=== PATIENT | female | born 1990 | race Caucasian/White ===

== ENCOUNTER 2016-03-26 18:28 | Emergency (ER) | payer OTHER ==
[2016-03-26 21:06] VITALS: BP 146/80
--- NOTE | 2016-03-26 21:14 | UC ---
[facility] HPI - HPI Summary HPI Summary: complaint of pain in upper left jaw infected wisdom tooth seen by dentist 3 days ago and he didn't put her on antibiotic had her teeth cleaned and then the pain started to get worse throbbing aching pain has appt at the end of march for tooth removal denies fever taking ibuprofen for pain with some relief - History of Current Complaint Chief Complaint: UCDentalProblem Stated Complaint: DENTAL Time Seen by Provider: 03/26/16 21:08 Hx Obtained From: Patient Hx Last Menstrual Period: 03/02/16 - Allergies/Home Medications Allergies/Adverse Reactions: Allergies Allergy/AdvReac Type Severity Reaction Status Date / Time Montelukast [From Singulair] Allergy See Comment Verified 03/26/16 21:06 Penicillins Allergy Rash Verified 03/26/16 21:06 seasonal allergy Allergy Eyes Uncoded 03/26/16 21:06 Itchy/Swollen/Red/Watery Home Medications: Home Medications Norethindr/Eth Estradiol(Nf) [Lo Loestrin Fe (NF)] 1 tab PO QPM 03/26/16 [ History Confirmed 03/26/16] PMH/Surg Hx/FS Hx/Imm Hx Previously Healthy: Yes Cardiovascular History Of: Reports: Cardiac Disorders - heart palpitations Respiratory History Of: Reports: Asthma - Surgical History Surgical History: Yes Surgery Procedure, Year, and Place: L 'knee arthroscopy 2007. Oral 2008. C- sect 2011, 2013 - Family History Known Family History: Positive: None, Hypertension, Respiratory Disease - Social History Occupation: Employed Full-time Lives: With Family Alcohol Use: Occasionally Alcohol Amount: WHEN NOT Substance Use Type: None Smoking Status (MU): Never Smoked Tobacco Review of Systems Constitutional: Negative Skin: Negative Eyes: Negative ENT: Dental Pain Respiratory: Negative Cardiovascular: Negative Gastrointestinal: Negative Genitourinary: Negative Motor: Negative Neurovascular: Negative Musculoskeletal: Negative Neurological: Negative Psychological: Negative All Other Systems Reviewed And Are Negative: Yes Physical Exam Triage Information Reviewed: Yes Appearance: No Pain Distress, Well-Nourished Vital Signs: Initial Vital Signs Temp 97.9 F 03/26/16 21:01 Pulse 77 03/26/16 21:01 Resp 20 03/26/16 21:01 BP 146/80 03/26/16 21:01 Vital Signs Reviewed: Yes Eyes: Positive: Conjunctiva Clear ENT: Positive: Pharynx normal, TMs normal Dental: Positive: Gross Decay/Caries @ - 16 Neck: Positive: No Lymphadenopathy Respiratory: Positive: Lungs clear, Normal breath sounds, No respiratory distress Cardiovascular: Positive: RRR, No Murmur, Pulses Normal Musculoskeletal: Positive: No Edema Neurological Exam: Normal Psychological Exam: Normal Skin Exam: Normal Dental Complaint Course/Dx - Differential Dx/Diagnosis Differential Diagnosis/Dx: Dental Caries, Fractured Tooth Provider Diagnoses: dental infection Discharge - Discharge Plan Condition: Stable Disposition: HOME Prescriptions: Clindamycin Cap(NF) [Cleocin 300 mg Cap(NF)] 300 mg PO TID #30 cap Patient Education Materials: Dental Caries (ED) Referrals: DAVID Saucedo [Primary Care Provider] - Additional Instructions: Start antibiotic as directed Increase fluids and rest Take acetaminophen or ibuprofen for fever or pain please call your orthodondist for further treatment Please review your discharge instructions. If your symptoms do not improve please call your primary care provider or return to urgent care
== END 2016-03-26 21:23 | disposition home or self-care (01) ==
LOC: UCCORT 18:28
DX: K04.7 Periapical abscess without sinus (principal); R00.2 Palpitations; J45.909 Unspecified asthma, uncomplicated; Z88.8 Allergy status to other drugs, medicaments and biological substances; Z88.0 Allergy status to penicillin
CPT/HCPCS: 99212; G0463

== ENCOUNTER 2017-02-12 08:51 | Emergency (ER) | payer OTHER ==
[2017-02-12 09:00] VITALS: BP 128/62
--- NOTE | 2017-02-12 09:21 | ED ---
Throat Pain/Nasal Congestion - HPI Summary HPI Summary: 26 yr old female with the complaint of sore throat. Onset of symptoms yesterday and limited to pain in throat, 5/10. No other symptoms. no runny nose , no cough. no post nasal drip. Denies fever, nausea. - History of Current Complaint Chief Complaint: UCRespiratory Time Seen by Provider: 02/12/17 09:04 - Allergies/Home Medications Allergies/Adverse Reactions: Allergies Allergy/AdvReac Type Severity Reaction Status Date / Time Hydrocodone Allergy Rash Verified 02/12/17 09:00 Montelukast [From Singulair] Allergy See Comment Verified 03/26/16 21:06 Penicillins Allergy Rash Verified 03/26/16 21:06 seasonal allergy Allergy Eyes Uncoded 03/26/16 21:06 Itchy/Swollen/Red/Watery Home Medications: Home Medications Mv & Min W/ Methylfol [ + Complete Multi 0.267 & 373 mg] 1 fariha PO DAILY 02/12/17 [History Confirmed 02/12/17] PMH/Surg Hx/FS Hx/Imm Hx Respiratory History: Reports: Hx Asthma - Surgical History Surgery Procedure, Year, and Place: L 'knee arthroscopy 2007. Oral 2008. C- sect 2011, 2013 Infectious Disease History: No Infectious Disease History: Denies: Traveled Outside the [place] in Last 30 Days - Family History Known Family History: Positive: None, Hypertension, Respiratory Disease - Social History Alcohol Use: None Alcohol Amount: WHEN NOT Substance Use Type: Reports: None Smoking Status (MU): Never Smoked Tobacco Review of Systems Constitutional: Negative Positive: Sore Throat All Other Systems Reviewed And Are Negative: Yes Physical Exam Triage Information Reviewed: Yes Vital Signs On Initial Exam: Initial Vitals Temp Pulse Resp BP Pulse Ox 98.4 F 92 18 128/62 98 02/12/17 08:56 02/12/17 08:56 02/12/17 08:56 02/12/17 08:56 02/12/17 08:56 Vital Signs Reviewed: Yes Appearance: Positive: Well-Appearing, No Pain Distress Skin: Positive: Warm, Skin Color Reflects Adequate Perfusion Head/Face: Positive: Normal Head/Face Inspection Eyes: Positive: EOMI ENT: Positive: Pharyngeal erythema, TMs normal. Negative: Nasal congestion Neck: Positive: Supple, Nontender Respiratory/Lung Sounds: Positive: Clear to Auscultation, Breath Sounds Present Cardiovascular: Positive: RRR. Negative: Murmur Abdomen Description: Positive: Nontender Musculoskeletal: Positive: Strength/ROM Intact Neurological: Positive: Sensory/Motor Intact, Alert, Oriented to Person Place, Time, CN Intact II-III Psychiatric: Positive: Normal - Alicia Coma Scale Best Eye Response: 4 - Spontaneous Best Motor Response: 6 - Obeys Commands Best Verbal Response: 5 - Oriented Diagnostics - Vital Signs Vital Signs Temp Pulse Resp BP Pulse Ox 02/12/17 08:56 98.4 F 92 18 128/62 98 - Laboratory Lab Results: Lab Results 02/12/17 Range/Units 08:57 Group A Strep Rapid Positive H (Negative) Lab Statement: Any lab studies that have been ordered have been reviewed, and results considered in the medical decision making process. EENT Course/Dx - Course Course Of Treatment: 26 yr old with sore throat. DC home on zithromax. - Diagnoses Provider Diagnoses: Strep throat Discharge - Discharge Plan Condition: Good Disposition: HOME Prescriptions: Azithromycin TAB* [Zithromax TAB (Z-FARIHA) 250 mg #6 tabs] 2 tab PO .TODAY, THEN 1 DAILY #1 fariha Patient Education Materials: Strep Throat (ED) Forms: *Work Release Referrals: DAVID Saucedo [Primary Care Provider] -
== END 2017-02-12 09:26 | disposition home or self-care (01) ==
LOC: UCCORT 08:51
DX: J02.0 Streptococcal pharyngitis (principal); J45.909 Unspecified asthma, uncomplicated; Z88.0 Allergy status to penicillin; Z88.5 Allergy status to narcotic agent
CPT/HCPCS: 87651; 99212; G0463

== ENCOUNTER 2017-07-09 08:43 | Emergency (ER) | payer OTHER ==
[2017-07-09 09:15] VITALS: BP 123/65
--- NOTE | 2017-07-09 09:30 | UC ---
Neck Pain HPI - HPI Summary HPI Summary: Pt presents with progressive tightness and spasm left side of neck and left upper shoulder. Pt states woke this way yesterday. Sx progressed during the day and much worse this am. Pt has had had similar sx in past - has gone to chiropracter. Last time > 1 year. Pt states similar location, but "more intense " Pt denies trauma or other injury. No alejandra, vision changes. No extremity weakness or paresthesia. PT took Motrin yesterday, none today. Pt RHD Pt's medications reviewed this visit - History of Current Complaint Chief Complaint: UCBackPain Stated Complaint: NECK PAIN Time Seen by Provider: 07/09/17 09:08 Hx Obtained From: Patient Hx Last Menstrual Period: 06/24/17 Onset/Duration Of Injury/Symptoms: Days - 1 Mechanism Of Injury: No Known Trauma Timing: Constant Onset/Duration: Gradual Onset, Lasting Days - 1 Severity: Moderate Pain Intensity: 5 Pain Scale Used: 0-10 Numeric Location: Discrete At: - left posterior shoulder, upper back Aggravating Factors: Movement Alleviating Factors: Position Associated Signs & Symptoms: Negative: Weakness, Paresthesia - Allergies/Home Medications Allergies/Adverse Reactions: Allergies Allergy/AdvReac Type Severity Reaction Status Date / Time hydrocodone Allergy Rash Verified 07/09/17 09:09 montelukast [From Singulair] Allergy See Comment Verified 07/09/17 09:09 Penicillins Allergy Rash Verified 07/09/17 09:09 seasonal allergy Allergy Eyes Uncoded 03/26/16 21:06 Itchy/Swollen/Red/Watery Home Medications: Home Medications Ibuprofen TAB* [Advil TAB*] 600 mg PO Q6H PRN 07/09/17 [History Confirmed ] PMH/Surg Hx/FS Hx/Imm Hx Previously Healthy: Yes - Surgical History Surgical History: Yes Surgery Procedure, Year, and Place: L 'knee arthroscopy 2007. Oral 2008. C- sect 2011, 2013 - Family History Known Family History: Positive: None, Hypertension, Respiratory Disease - Social History Occupation: Employed Full-time Lives: With Family Alcohol Use: None Alcohol Amount: WHEN NOT Substance Use Type: None Smoking Status (MU): Never Smoked Tobacco Review Of Systems Constitutional: Positive: Negative Musculoskeletal: Positive: Other: - left upper back pain Neurological: Positive: Negative Psychological: Positive: Negative All Other Systems Reviewed And Are Negative: Yes Physical Exam Triage Information Reviewed: Yes Appearance: Well-Appearing, Well-Nourished, Other: - pt with discomfort - holding head stiff with movement second to left sided neck pain Vital Signs: Initial Vital Signs Temp 98.1 F 07/09/17 09:10 Pulse 70 07/09/17 09:10 Resp 18 07/09/17 09:10 BP 123/65 07/09/17 09:10 Pulse Ox 100 07/09/17 09:10 Vital Signs Reviewed: Yes Eye Exam: Normal Eyes: Positive: Conjunctiva Clear ENT Exam: Normal ENT: Positive: Normal ENT inspection, Hearing grossly normal, Pharynx normal Dental Exam: Normal Neck exam: Normal Neck: Positive: Supple, Nontender, No Lymphadenopathy Respiratory Exam: Normal Respiratory: Positive: Chest non-tender, Lungs clear, Normal breath sounds, No respiratory distress, No accessory muscle use Cardiovascular Exam: Normal Cardiovascular: Positive: RRR, No Murmur, Pulses Normal Abdominal Exam: Normal Abdomen Description: Positive: Nontender, No Organomegaly, Soft Bowel Sounds: Positive: Present Musculoskeletal: Positive: Other: - no pain spinous process c/t/l/s + TTP left trapezius + palpable muscle spasm + ROM with discomfort c spine + abduction left shoulder with left trap pain + flex/ext elbow + pronate/supinate elbow + flex/ext wrist Neurological Exam: Normal Neurological: Positive: Alert, Other: - + thumb up, A ok, finger cross, finger spread + gross sensation Psychological Exam: Normal Psychological: Positive: Normal Response To Family Skin Exam: Normal Neck Pain Course/Dx - Course Course Of Treatment: Pt with left sided trapezius pain. palpable spasm. no midline pain. recommend motrin/apap. flexeril. heat. stretch. neck collar. return precautions discussed. pt comfortable and in agreement with plan - Differential Dx/Diagnosis Provider Diagnoses: muscle spasm Discharge - Sign-Out/Discharge Documenting (check all that apply): Discharge/Admit/Transfer - Discharge Plan Condition: Stable Disposition: HOME Prescriptions: Cyclobenzaprine TAB* [Flexeril 10 MG TAB*] 5 - 10 mg PO Q12HR PRN #10 tab MDD 2 PRN Reason: muscle spasm Patient Education Materials: Cervical Strain (ED), Muscle Spasm (ED) Referrals: DAVID Saucedo [Primary Care Provider] - Additional Instructions: - Okay to alternate ibuprofen (Advil, Motrin) 600mg and Tylenol product every 3hours as needed for pain. Take with food. Do NOT take for more than 4-5 days. -Take Flexeril - muscle relaxer as prescribed. This may cause sleepiness. Do NOT drive, operate machinery or drink alcohol while taking muscle relaxant. -Apply moist heat to your back for 20 minutes at a time, 4-5 times a day. Once your muscles are warm, slow gentle stretching exercises are important - Wear neck collar for support -Contact your doctor today to arrange a follow-up appointment next week. If you do not have a doctor you have been given the contact information for the physician referral center - call for an appointment. -If you pain is uncontrolled or you develop arm weakness or any other concerns it is recommended you go to an emergency department for further treatment - Billing Disposition and Condition Condition: STABLE Disposition: HOME
[2017-07-09] MEDS ORDERED: Cyclobenzaprine TAB* 10 MG PO ONE ×2 (09:49→09:50)
[2017-07-09] MEDS ORDERED: Ibuprofen TAB* 600 MG PO ONE (09:49)
== END 2017-07-09 10:08 | disposition home or self-care (01) ==
LOC: UCCORT 08:43
DX: M62.838 Other muscle spasm (principal); Z88.0 Allergy status to penicillin; Z88.5 Allergy status to narcotic agent; Z88.8 Allergy status to other drugs, medicaments and biological substances
CPT/HCPCS: 99213; A9270-GY; G0463

== ENCOUNTER 2019-01-21 10:04 | Emergency (ER) | payer OTHER ==
[2019-01-21 10:24] VITALS: BP 124/72
--- NOTE | 2019-01-21 10:52 | UC ---
Throat Pain/Nasal Christiano HPI - HPI Summary HPI Summary: 28-year-old female with sore throat and fever for the past 24 hours. Her daughter has documented strep pharyngitis. - History of Current Complaint Chief Complaint: UCGeneralIllness Stated Complaint: THROAT COMPLAINT Time Seen by Provider: 01/21/19 10:40 Hx Obtained From: Patient Hx Last Menstrual Period: 12/23/18 ?: No Onset/Duration: Gradual Onset Severity: Mild Pain Intensity: 5 Cough: None Associated Signs & Symptoms: Positive: Fever - Allergies/Home Medications Allergies/Adverse Reactions: Allergies Allergy/AdvReac Type Severity Reaction Status Date / Time hydrocodone Allergy Rash Verified 01/21/19 10:20 montelukast [From Singulair] Allergy See Comment Verified 01/21/19 10:20 Penicillins Allergy Rash Verified 01/21/19 10:20 seasonal allergy Allergy Eyes Uncoded 01/21/19 10:20 Itchy/Swollen/Red/Watery Home Medications: Home Medications Multivitamins/Minerals TAB* [Thera M Plus TAB*] 1 tab PO DAILY 01/21/19 [ History Confirmed 01/21/19] PMH/Surg Hx/FS Hx/Imm Hx Previously Healthy: Yes - Surgical History Surgical History: Yes Surgery Procedure, Year, and Place: L 'knee arthroscopy 2007. Oral 2008. C- sect 2013 - Family History Known Family History: Positive: None, Hypertension, Respiratory Disease - Social History Alcohol Use: Occasionally Alcohol Amount: WHEN NOT Substance Use Type: None Smoking Status (MU): Never Smoked Tobacco Review of Systems All Other Systems Reviewed And Are Negative: Yes Constitutional: Positive: Fever ENT: Positive: Sore Throat Is Patient Immunocompromised?: No Physical Exam Triage Information Reviewed: Yes Appearance: Well-Appearing, No Pain Distress, Well-Nourished Vital Signs: Initial Vital Signs Temp 98.5 F 01/21/19 10:21 Pulse 97 01/21/19 10:21 Resp 15 01/21/19 10:21 BP 124/72 01/21/19 10:21 Pulse Ox 100 01/21/19 10:21 Vital Signs Reviewed: Yes Eyes: Positive: Conjunctiva Clear ENT: Positive: Pharyngeal erythema, TMs normal, Tonsillar swelling, Tonsillar exudate - Patient has "strep smell" to breath., Uvula midline Neck: Positive: Supple, Nontender, Enlarged Nodes @ - Very mild bilateral tonsillar lymph node enlargement. Respiratory: Positive: Lungs clear, Normal breath sounds, No respiratory distress, No accessory muscle use Cardiovascular: Positive: RRR, No Murmur, Pulses Normal, Brisk Capillary Refill Abdomen Description: Positive: Nontender, No Organomegaly, Soft. Negative: CVA Tenderness (R), CVA Tenderness (L), Distended, Guarding, Splenomegaly Bowel Sounds: Positive: Present Musculoskeletal Exam: Normal Neurological Exam: Normal Psychological Exam: Normal Skin Exam: Normal Throat Pain/Nasal Course/Dx - Course Course Of Treatment: Because of the history of her daughter having strep throat and the patient has clinical strep I'm going to treat her with a Z-Fariha. She is comfortable here and to follow-up with her primary care provider if no improvement in 3 or 4 days. - Differential Dx/Diagnosis Provider Diagnosis: Tonsillitis Discharge ED - Sign-Out/Discharge Documenting (check all that apply): Patient Departure All imaging exams completed and their final reports reviewed: No Studies - Discharge Plan Condition: Fair Disposition: HOME Prescriptions: Azithromyxin FARIHA (NF) [Z-Fariha (Zithromax) 250 mg tabs #6] 2 tab PO .TODAY, THEN 1 DAILY #6 tab Patient Education Materials: Tonsillitis (ED) Referrals: No Primary Care Phys,NOPCP [Primary Care Provider] - [facility] [Outside] Additional Instructions: Increase fluids, change your toothbrush in 24 hours, Tylenol every 4 hours and may alternate with Motrin every 8 hours for pain or fever. Follow-up with your primary care provider if no improvement in 3 or 4 days. - Billing Disposition and Condition Condition: FAIR Disposition: Home
== END 2019-01-21 11:04 | disposition home or self-care (01) ==
LOC: UCCORT 10:04
DX: J03.90 Acute tonsillitis, unspecified (principal); Z88.5 Allergy status to narcotic agent; Z88.0 Allergy status to penicillin; Z91.09 Other allergy status, other than to drugs and biological substances; Z88.8 Allergy status to other drugs, medicaments and biological substances
CPT/HCPCS: 87651; 99212; G0463

== ENCOUNTER 2019-03-24 15:48 | Emergency (ER) | payer OTHER ==
[2019-03-24 16:47] VITALS: BP 128/65
--- NOTE | 2019-03-24 17:09 | UC ---
Respiratory Complaint HPI - HPI Summary HPI Summary: Cough and congestion started 4 days ago. Has pain in chest when she coughs, stinging.. Pt feels she may have bronchitis. Took chris seltzer type cold med this morning and has been using her inhaler. using albuterol but not helping. - History of Current Complaint Chief Complaint: UCGeneralIllness Stated Complaint: COUGH,CONGESTION Time Seen by Provider: 03/24/19 16:53 Hx Obtained From: Patient Hx Last Menstrual Period: 12/23/18 Pain Intensity: 3 Pain Scale Used: 0-10 Numeric Character: Cough: Nonproductive Aggravating Factors: Nothing Alleviating Factors: Nothing - Allergies/Home Medications Allergies/Adverse Reactions: Allergies Allergy/AdvReac Type Severity Reaction Status Date / Time hydrocodone Allergy Rash Verified 03/24/19 16:47 montelukast [From Singulair] Allergy See Comment Verified 03/24/19 16:47 Penicillins Allergy Rash Verified 03/24/19 16:47 seasonal allergy Allergy Eyes Uncoded 03/24/19 16:47 Itchy/Swollen/Red/Watery Home Medications: Home Medications Albuterol HFA INHALER* [Ventolin HFA Inhaler*] 1 - 2 puff INH Q4H PRN 03/24/19 [ History Confirmed 03/24/19] PMH/Surg Hx/FS Hx/Imm Hx Previously Healthy: Yes Respiratory History: Asthma - Surgical History Surgical History: Yes Surgery Procedure, Year, and Place: L 'knee arthroscopy 2007. Oral 2008. C- sect 2011, 2013 - Family History Known Family History: Positive: None, Hypertension, Respiratory Disease - Social History Alcohol Use: Occasionally Alcohol Amount: WHEN NOT Substance Use Type: None Smoking Status (MU): Never Smoked Tobacco Review of Systems All Other Systems Reviewed And Are Negative: Yes Constitutional: Negative: Fever ENT: Positive: Sinus Congestion. Negative: Sore Throat, Ear Ache Respiratory: Positive: Cough. Negative: Shortness Of Breath, Other - denies wheezing Gastrointestinal: Negative: Vomiting, Nausea Neurological: Negative: Headache Physical Exam Triage Information Reviewed: Yes Appearance: Well-Appearing Vital Signs: Initial Vital Signs Temp 98.6 F 03/24/19 16:42 Pulse 74 03/24/19 16:42 Resp 18 03/24/19 16:42 BP 128/65 03/24/19 16:42 Pulse Ox 100 03/24/19 16:42 Vital Signs Reviewed: Yes Eyes: Positive: Conjunctiva Clear ENT: Positive: Pharynx normal, TMs normal, Uvula midline Neck: Positive: Supple, Nontender, No Lymphadenopathy Respiratory: Positive: Lungs clear, Wheezing. Negative: Crackles Cardiovascular Exam: Normal Neurological: Positive: Alert Skin: Negative: Rashes Respiratory Course/Dx - Course Course Of Treatment: cough w/ pleuritic chest pain, afebrile and in an asthmatic. albulterol helping somewhat. vitals are good. wheezing on exam. will tx w/ medrol dose pack to help. no indication for antibx. - Differential Dx/Diagnosis Differential Diagnosis/HQI/PQRI: Other Provider Diagnosis: Bronchitis, Wheezing Discharge ED - Sign-Out/Discharge Documenting (check all that apply): Patient Departure All imaging exams completed and their final reports reviewed: No Studies - Discharge Plan Condition: Good Disposition: HOME Prescriptions: methylPREDNISolone [Medrol Dosepak 4 MG*] 0 mg PO .SEE FARIHA INSTRUCTION #1 fariha Patient Education Materials: Bronchospasm (ED) Referrals: [facility] [Outside] Additional Instructions: If worsening please return. You should start seeing a regular primary care provider. - Billing Disposition and Condition Condition: GOOD Disposition: Home
== END 2019-03-24 17:15 | disposition home or self-care (01) ==
LOC: UCCORT 15:48
DX: J40 Bronchitis, not specified as acute or chronic (principal); J45.909 Unspecified asthma, uncomplicated; R06.2 Wheezing; Z79.899 Other long term (current) drug therapy; Z88.5 Allergy status to narcotic agent; Z88.0 Allergy status to penicillin; Z91.09 Other allergy status, other than to drugs and biological substances; Z88.8 Allergy status to other drugs, medicaments and biological substances
CPT/HCPCS: 99212; G0463